=== PATIENT | female | born 1980 | race Caucasian/White ===

== ENCOUNTER 2023-08-22 08:55 | Outpatient (CLI) | payer OTHER, SELFPAY | END 2023-08-22 08:56 | disposition home or self-care (01) | LOC: NFLDREF 08-23 08:35 | PROVIDERS: PCP Family Medicine; Visit Provider Family Medicine | DX: E06.3 Autoimmune thyroiditis (principal); E28.39 Other primary ovarian failure; F32.A Depression, unspecified; F41.9 Anxiety disorder, unspecified; R53.83 Other fatigue; R73.9 Hyperglycemia, unspecified; Z13.220 Encounter for screening for lipoid disorders; Z86.2 Personal history of diseases of the blood and blood-forming organs and certain disorders involving the immune mechanism | CPT/HCPCS: 80053; 80061; 82306; 82607; 82728; 83001; 84443 ==

== ENCOUNTER 2023-10-30 09:17 | Outpatient (CLI) | payer OTHER, SELFPAY ==
[2023-10-30 19:16] LABS: Chlamydia DNA Amplified* NOT DETECTED (No Detected); GC DNA Amplified* NOT DETECTED (No Detected)
== END 2023-10-30 09:18 | disposition home or self-care (01) ==
PROVIDERS: PCP Physician Assistant Medical; Visit Provider Physician Assistant Medical
DX: Z00.00 Encounter for general adult medical examination without abnormal findings (principal); E06.3 Autoimmune thyroiditis; R53.83 Other fatigue; N93.0 Postcoital and contact bleeding; Z11.3 Encounter for screening for infections with a predominantly sexual mode of transmission
CPT/HCPCS: 84439; 84443; 84481; 86376; 87491; 87591

== ENCOUNTER 2023-11-12 08:13 | Outpatient (CLI) | payer OTHER, SELFPAY ==
--- NOTE | 2023-11-12 08:15 | CRLHL7_ITS ---
For Patients: As a result of the Century Cures Act, medical imaging exams and procedure reports are released immediately into your electronic medical record. You may view this report before your referring provider. If you have questions, please contact your health care provider. INDICATION: Thyroid nodules COMPARISON: Outside report from 11/25/2017 TECHNIQUE: Beth scale and color Doppler images were acquired of the thyroid gland. FINDINGS: Solid isoechoic nodule at the isthmus measures 9 x 6 x 12 millimeters. The isthmus measures 4 millimeters. Heterogeneously hyperechoic nodule left thyroid lobe noted with internal vascularity measuring 7 x 8 x 9 millimeters. Additional slightly hyperechoic nodule left thyroid lobe measures 6 x 6 x 10 millimeters. Heterogeneous solid nodule right thyroid lobe measures 14 x 12 x 13 millimeters, previously measuring 16 x 11 x 15 millimeters. The right lobe measures 5.3 x 1.9 x 2.0 cm and the left lobe measures 5.3 x 1.6 x 1.6 cm in size. There is no evidence of cervical lymphadenopathy or parathyroid mass. IMPRESSION: Stable previously biopsied right thyroid lobe nodule. A small isthmus nodule and left thyroid lobe nodules. Dictated by Pedro Gutierres MD @ 11/12/2023 12:52:59 PM (Electronically Signed)
--- NOTE | 2023-11-12 08:15 | CRLHL7_ITS ---
For Patients: As a result of the Century Cures Act, medical imaging exams and procedure reports are released immediately into your electronic medical record. You may view this report before your referring provider. If you have questions, please contact your health care provider. INDICATION: postcoital and contact bleeding COMPARISON: none TECHNIQUE: 2D gallardo scale and color Doppler images were acquired of the pelvis using a transabdominal and transvaginal approach. FINDINGS: Sonographic images demonstrate a normal size and smooth outer contour of the uterus. Uterus measures 6.0 cm in length by 2.9 cm in AP diameter by 3.4 cm in transverse dimension. The myometrium has a normal uniform echotexture. The endometrial lining appears normal and measures 4.4 mm in composite thickness. The right ovary measures 1.6 x 0.9 x 1.0 cm in size and the left ovary is not visualized. The right ovary demonstrates normal arterial and venous blood flow on color Doppler analysis. There are no suspicious fluid collections within the cul-de-sac. IMPRESSION: Normal pelvic ultrasound. Dictated by Pedro Gutierres MD @ 11/12/2023 12:43:36 PM (Electronically Signed)
== END 2023-11-12 08:14 | disposition home or self-care (01) ==
PROVIDERS: PCP Physician Assistant Medical; Visit Provider Physician Assistant Medical
DX: N93.0 Postcoital and contact bleeding (principal); E28.319 Asymptomatic premature menopause; E06.3 Autoimmune thyroiditis; E04.1 Nontoxic single thyroid nodule
CPT/HCPCS: 76536; 76830; 76856

== ENCOUNTER 2024-01-06 13:33 | Outpatient (CLI) | payer OTHER, SELFPAY ==
--- NOTE | 2024-01-06 13:40 | CRLHL7_ITS ---
For Patients: As a result of the Century Cures Act, medical imaging exams and procedure reports are released immediately into your electronic medical record. You may view this report before your referring provider. If you have questions, please contact your health care provider. BILATERAL SCREENING MAMMOGRAM WITH COMPUTER-AIDED DETECTION AND TOMOSYNTHESIS TECHNIQUE: CC and MLO views were obtained. These mammographic images have been obtained using full-field digital technique. These mammographic images were interpreted with the benefit of computer-aided detection. Breast Tomosynthesis was used in this interpretation. COMPARISON FILM: 12/03/22, 06/30/21. FINDINGS: The breasts are heterogeneously dense, which may obscure small masses. IMPRESSION: There is no radiographic evidence for malignancy. ASSESSMENT: BI-RADS Category 2: Benign RECOMMENDATION: Routine screening mammogram in 1 year. A lay language report of this examination will be provided to the patient. Pedro Gutierres M.D. Diagnostic Radiologist [email or web address] SP/Dictated by: Pedro Gutierres MD @ 01/09/2024 12:17:00 PM (Electronically Signed)
== END 2024-01-06 13:34 | disposition home or self-care (01) ==
LOC: MAMMO 13:34
PROVIDERS: PCP Physician Assistant Medical; Visit Provider Physician Assistant Medical
DX: Z12.31 Encounter for screening mammogram for malignant neoplasm of breast (principal); R92.2 Inconclusive mammogram
CPT/HCPCS: 77063; 77067

== ENCOUNTER 2024-01-27 09:10 | Outpatient (CLI) | payer OTHER, SELFPAY | END 2024-01-27 09:11 | disposition home or self-care (01) | PROVIDERS: PCP Physician Assistant Medical; Visit Provider Physician Assistant Medical | DX: E06.3 Autoimmune thyroiditis (principal) | CPT/HCPCS: 84439; 84443; 84481; 86140 ==

== ENCOUNTER 2024-06-15 09:32 | Outpatient (CLI) | payer OTHER, SELFPAY | END 2024-06-15 09:33 | disposition home or self-care (01) | LOC: NFLDREF 06-17 05:39 | PROVIDERS: PCP Physician Assistant Medical; Referring Provider Physician Assistant Medical; Visit Provider Physician Assistant Medical | DX: E06.3 Autoimmune thyroiditis (principal) | CPT/HCPCS: 84443; 86376; 86800 ==

== ENCOUNTER 2024-10-29 10:10 | Outpatient (CLI) | payer OTHER, SELFPAY | END 2024-10-29 10:11 | disposition home or self-care (01) | LOC: LKVREF 10:13 | PROVIDERS: PCP Physician Assistant Medical; Visit Provider Physician Assistant Medical | DX: F90.9 Attention-deficit hyperactivity disorder, unspecified type (principal) | CPT/HCPCS: 80306 ==

== ENCOUNTER 2025-01-07 08:05 | Outpatient (CLI) | payer OTHER, SELFPAY | END 2025-01-07 08:06 | disposition home or self-care (01) | LOC: NFLDREF 01-13 06:22 | PROVIDERS: PCP Physician Assistant Medical; Referring Provider Physician Assistant Medical; Visit Provider Physician Assistant Medical | DX: E06.3 Autoimmune thyroiditis (principal); R53.83 Other fatigue; E66.3 Overweight; N95.1 Menopausal and female climacteric states; G47.9 Sleep disorder, unspecified | CPT/HCPCS: 80053; 80061; 84439; 84443; 84481 ==

== ENCOUNTER 2025-02-11 10:38 | Outpatient (CLI) | payer OTHER, SELFPAY ==
--- NOTE | 2025-02-11 10:45 | CRLHL7_ITS ---
For Patients: As a result of the Cures Act, medical imaging exams and procedure reports are released immediately into your electronic medical record. You may view this report before your referring provider. If you have questions, please contact your health care provider. INDICATION: Thyroid nodules COMPARISON: 11/12/2023 TECHNIQUE: Beth scale and color Doppler images were acquired of the thyroid gland. FINDINGS: Solid heterogeneous nodule right thyroid lobe measures 1.4 x 0.9 x 1.1 cm, TR 4, previously measuring 1.4 x 1.2 x 1.3 cm. Solid near isoechoic nodule left thyroid lobe nodule measures 1.2 x 0.8 x 1.2 cm, TR 3, previously measuring 1 cm. Additional slightly hypoechoic solid nodule left thyroid lobe measures 9 x 6 x 9 millimeters, TR 3, previously measuring 7 x 8 x 9 millimeters. Isthmus nodule measures 1.6 x 0.6 x 1.1 cm, previously measuring 0.9 x 0.6 x 1.2 cm, TR 3. The right lobe measures 5.9 x 1.7 x 1.8 cm and the left lobe measures 5.9 x 1.5 x 1.5 cm in size. The color Doppler images demonstrate normal vascularity. There is no evidence of cervical lymphadenopathy or parathyroid mass. IMPRESSION: Stable bilateral thyroid nodules. Dictated by Pedro Gutierres MD @ 02/11/2025 11:29:02 AM (Electronically Signed)
== END 2025-02-11 10:39 | disposition home or self-care (01) ==
LOC: US 10:38
PROVIDERS: PCP Physician Assistant Medical; Visit Provider Physician Assistant Medical
DX: E04.1 Nontoxic single thyroid nodule (principal)
CPT/HCPCS: 76536